=== PATIENT | female | born 1945 | race Caucasian/White ===

== ENCOUNTER → 2023-09-25 07:48 | Outpatient (REF) | payer MEDICARE, OTHER, SELFPAY | LOC: DHVS 07:48 | PROVIDERS: ATTENDING PHYSICIAN Surgery Vascular Surgery; FAMILY PHYSICIAN Family Medicine | DX: I73.9 Peripheral vascular disease, unspecified (principal); I65.23 Occlusion and stenosis of bilateral carotid arteries | CPT/HCPCS: 93880; 93922; 93925 ==

== ENCOUNTER → 2023-12-19 18:38 | Outpatient (REF) | payer MEDICARE, OTHER, SELFPAY | LOC: PAVMRI 18:38 | PROVIDERS: ATTENDING PHYSICIAN Family Medicine | DX: R41.82 Altered mental status, unspecified (principal) | CPT/HCPCS: 70551 ==

== ENCOUNTER → 2024-02-03 12:08 | Outpatient (REF) | payer MEDICARE, OTHER, SELFPAY | LOC: RAD 12:08 | PROVIDERS: ATTENDING PHYSICIAN Physician Assistant Medical; FAMILY PHYSICIAN Family Medicine | DX: M25.551 Pain in right hip (principal); M25.561 Pain in right knee | CPT/HCPCS: 73502; 73564 ==

== ENCOUNTER → 2024-02-11 11:48 | Outpatient (REF) | payer MEDICARE, OTHER, SELFPAY | LOC: RAD 11:48 | PROVIDERS: ATTENDING PHYSICIAN Family Medicine | DX: M54.31 Sciatica, right side (principal) | CPT/HCPCS: 72110 ==

== ENCOUNTER 2024-03-16 08:54 | Outpatient (RCR) | payer MEDICARE, OTHER, SELFPAY | END 2024-03-16 23:59 | disposition home or self-care (01) | LOC: RPT 08:54 | PROVIDERS: ATTENDING PHYSICIAN Family Medicine | DX: M54.16 Radiculopathy, lumbar region (principal); Z73.6 Limitation of activities due to disability; M79.604 Pain in right leg | CPT/HCPCS: 97010; 97110; 97140; 97162 ==

== ENCOUNTER 2024-04-02 07:09 | Outpatient (RCR) | payer MEDICARE, OTHER, SELFPAY | END 2024-04-02 23:59 | disposition home or self-care (01) | LOC: RPT 07:09 | PROVIDERS: ATTENDING PHYSICIAN Family Medicine | DX: M54.16 Radiculopathy, lumbar region (principal); Z73.6 Limitation of activities due to disability; M79.604 Pain in right leg | CPT/HCPCS: 97010; 97110; 97112 ==

== ENCOUNTER → 2024-04-15 07:43 | Outpatient (REF) | payer MEDICARE, OTHER, SELFPAY | LOC: DHVS 07:43 | PROVIDERS: ATTENDING PHYSICIAN Surgery Vascular Surgery | DX: I73.9 Peripheral vascular disease, unspecified (principal); I65.23 Occlusion and stenosis of bilateral carotid arteries | CPT/HCPCS: 93880; 93922; 93925 ==

== ENCOUNTER 2024-04-17 23:26 | Inpatient (IN) | payer MEDICARE, OTHER, SELFPAY ==
[2024-04-17 17:10] VITALS: BP 94/49
[2024-04-17 17:43] LABS: % Basophils 0.6 % (0-2); % Eosinophils 4.1 % (0-6); % Immature Granulocytes 0.6 % (0-0.5); % Lymphocytes 19.2 % (20.5-51.1); % Monocytes 12.3 % (1.7-9.3); % Neutrophils 63.2 % (42.2-75.2); Absolute Eosinophils 0.2 10^3/uL (0-0.7); Absolute Lymphocytes 0.9 10^3/uL (1.2-3.4); Absolute Monocytes 0.6 10^3/uL (0.1-0.6); Absolute Neutrophils 2.9 10^3/uL (1.4-6.5); Hemoglobin 7.3 g/dL (12.0-16.0); Mean Corp Hgb Conc. 30.4 g/dL (33.0-37.0); Mean Corpuscular Hgb 25.2 pg (27.0-31.0); Mean Corpuscular Volume 82.8 fL (81.0-99.0); Mean Platelet Volume 10.6 fL (7.4-10.4); Nucleated Red Blood Cells % 0 %; Platelet Count 254 10^3/uL (130-400); Red Cell Dist. Width 14.2 % (11.5-14.5); White Blood Cell Count 4.6 10^3/uL (4.8-10.8)
[2024-04-17 17:51] LABS: Urine Albumin 1+ (Neg - Trace); Urine Bilirubin Negative (Negative); Urine Character Clear (Clear); Urine Color Yellow; Urine Glucose Negative (Negative); Urine Ketone Negative (Negative); Urine Leukocyte 1+ (Negative); Urine Nitrite Negative (Negative); Urine Occult Blood Negative (Negative); Urine Urobilinogen 1+ (Neg - 1+)
[2024-04-17 18:06] LABS: ALT (SGPT) 17 U/L (0-35); AST (SGOT) 18 U/L (14-36); Albumin 4.4 g/dl (3.5-5.0); Alkaline Phosphatase 72 U/L (38-126); Blood Urea Nitrogen 38 mg/dl (7-17); Calcium 9.5 mg/dl (8.4-10.2); Carbon Dioxide 21 mmol/L (22-30); Chloride 104 mmol/L (98-107); Glucose 290 mg/dl (70-99); Potassium 4.2 mmol/L (3.5-5.1); Sodium 136 mmol/L (135-145); Total Bilirubin 0.6 mg/dl (0.2-1.3); Total Protein 6.6 g/dl (6.3-8.2); eGFR 35.45
[2024-04-17 18:13] LABS: Urine Red Blood Cell 0-2 /HPF (0-2); Urine Squamous Cell >30 /LPF (Few)
[2024-04-17 18:14] LABS: Urine Bacteria Few (Negative); Urine White Cell 21-25 /HPF (0-5)
[2024-04-17 20:50] VITALS: BP 135/53
[2024-04-17 21:00] VITALS: BP 145/45
[2024-04-17] MEDS: NSS 1000 IV (21:23)
[2024-04-17 21:39] LABS: COVID-19 Antigen Negative (Negative)
--- NOTE | 2024-04-17 21:50 | ED.GENMED ---
History of Present Illness
General
Chief Complaint: Weakness
Source: patient, spouse and family
Time Seen by Provider: 04/17/24 20:50
History of Present Illness
History of Present Illness:
78-year-old female with past medical history of peripheral vascular disease, CAD, hypertension, hyperlipidemia, previous PA, insulin-dependent diabetes presenting to the ER for evaluation of acute onset of confusion that began earlier today but over
the week has had mild URI-like symptoms, cough, generalized malaise. Daughter states they went out to lunch on Friday and everything seemed fine but later that evening patient had noted a slight sore throat and thought she was getting a mild cold.
The next few days patient had been sleeping greater than 12 hours/day but still feeling quite tired. No fevers during this time. Today family noted patient did not know she was in her own house and thought she was at somebody else's house but was
otherwise answering all other questions appropriately. At time of my exam patient states she has no concerns and family states patient is acting her usual baseline.
Past History
Past History
ED Past Medical History: CAD, CVA, HTN, Hypercholesterolemia, NIDDM and PA
ED Past Surgical History: Other (Femoropopliteal bypass)
Social History
Tobacco: Former smoker
Alcohol: None
Drug: None
Personal:
Living: with family
Family History
Family History: Other (reviewed and non-contributory)
Review of Systems
Review of Systems
All Other Systems: ROS reviewed and negative except as documented in HPI and ROS
Phy Exam
Physical Exam
Physical Exam:
GENERAL: Alert , in no apparent distress
EYE: clear conjunctiva b/l
HEAD: NCAT
ENT: mmm.
CARDIAC: Regular rate and rhythm .
LUNGS: Clear breath sounds bilaterally, no acute respiratory distress, no wheezes/rales/rhonchi
ABDOMEN: Soft, without focal tenderness, no r/g, no cvat, negative Graham sign, no tenderness at McBurney's point
RECTAL EXAM: Chaperoned by ED MARGARITA Boss, light brown stool, heme-negative
NEUROLOGICAL: Alert and oriented
SKIN: Warm and dry, skin intact.
MUSCULOSKELETAL: No edema, well perfused.
PSYCH: Normal and appropriate interaction.
Scores
Heart Failure Risk
Heart Failure Risk Score: Not Applicable
Heart Score for Chest Pain Patients
STEMI patient?: Not applicable
Withdrawal Assessment of Alcohol
Withdrawal Assessment Completed?: Not applicable
Course
Orders/Labs/Results
Orders:
Orders
04/17/24 17:23
CMP [Comprehensive Metabolic Panel] Urgent
Complete Blood Count/With Diff Urgent
04/17/24 17:28
Urinalysis Reflex To Culture Urgent
Date Specimen was Collected: 04/17/24
Time Specimen was Collected: 17:18
Urine Microscopic Reflex Cult Urgent
Urine Culture Urgent
ALIX Source: U
Specimen Description:
Date Specimen was Collected: 04/17/24
Time Specimen was Collected: 17:18
04/17/24 20:55
Type And Crossmatch [Type+Screen] Urgent
04/17/24 21:05
COVID-19 Antigen Urgent
Source: Nasal Swab
Influenza A+B Rapid Molecular Urgent
ALIX Source: Nasal Swab
Specimen Description:
04/17/24 21:18
0.9% Sodium Chloride 1000 ml [Nss] 1,000 ml IV BOLUS
Abnormal Lab Results
04/17/24 04/17/24
17:23 17:28
WBC 4.6 L 10^3/uL
(4.8-10.8)
RBC 2.90 L 10^6/uL
(4.20-5.40)
Hgb 7.3 L g/dL
(12.0-16.0)
Hct 24.0 L %
(37.0-47.0)
MCH 25.2 L pg
(27.0-31.0)
MCHC 30.4 L g/dL
(33.0-37.0)
MPV 10.6 H fL
(7.4-10.4)
Absolute Lymphs (auto) 0.9 L 10^3/uL
(1.2-3.4)
Immature Gran % 0.6 H %
(0-0.5)
Lymphocytes % 19.2 L %
(20.5-51.1)
Monocytes % 12.3 H %
(1.7-9.3)
Carbon Dioxide 21 L mmol/L
(22-30)
BUN 38 H mg/dl
(7-17)
Creatinine 1.5 H mg/dL
(0.6-1.0)
Glucose 290 H mg/dl
(70-99)
Leukocyte Esterase Rfl 1+ A
(Negative)
Urine WBC (Reflex) 21-25 A /HPF
(0-5)
Urine Bacteria (Reflex) Few A
(Negative)
Urine Albumin (Reflex) 1+ A
(Neg - Trace)
04/17/24 17:23
04/17/24 17:23
Vital Signs
Initial and Last Documented VS:
Initial Vital Signs
Pulse Resp BP Pulse Ox
52 16 94/49 99
04/17/24 17:10 04/17/24 17:10 04/17/24 17:10 04/17/24 17:10
Last Documented Vital Signs
Pulse Resp BP Pulse Ox
57 17 94/49 96
04/17/24 20:35 04/17/24 20:35 04/17/24 17:10 04/17/24 20:35
MDM/Problems Addressed
Differential Diagnosis Includes:
COVID, flu, pneumonia, urine infection, anemia, dehydration
*Critical Care Note
Total Time (30-74mins, 75-104mins- exclusive of procedures): Not Applicable
Patient Management
Discussion with other providers: Hospitalist
Escalation/DeEscalation of care consider admission/obs:
Hospitalist team accepts patient for continued evaluation and treatment for patient's anemia, acute kidney injury and possible urinary tract infection. Rocephin ordered to cover for UTI. Patient blood consent signed however will defer decision to
transfuse to hospitalist team.
ED Attending Note
-
Portions of this chart may have been created with voice recognition software.� Occasional wrong word or��sound alike� substitutions may have occurred due to the inherent limitations of voice recognition software.
Discharge Plan
Departure
Patient Disposition: Admit
Date of Disposition: 04/17/24
Time of Disposition: 22:01
Presentation/result/management discussed w/ accepting MD/DO: Hospitalist
Discharge Problem:
Anemia, DINORA (acute kidney injury), Acute UTI
Prescriptions:
No Action
atorvastatin 40 MG tablet
40 mg PO HS
ascorbic acid (vitamin C) [Vitamin C] 500 MG tablet
500 mg PO DAILY
vitamin E (dl, acetate) 400 UNITS capsule
400 units PO DAILY
glipizide 5 MG tablet extended release 24hr
10 mg PO BID@0800,1700
insulin glargine [Lantus U-100 Insulin] 100 UNIT/ML solution
10 unit SQ HS
aspirin [Saulo Chewable Aspirin] 81 MG tablet,chewable
81 mg PO DAILY
cyanocobalamin (vitamin B-12) 1,000 mcg Tablet
1,000 mcg PO DAILY
clopidogrel 75 mg Tablet
75 mg PO DAILY Qty: 3 0RF
metformin 500 MG tablet extended release 24 hr
1,000 mg PO BID@0800,1700 Qty: 0 0RF
Rx Instructions:
Restart 05/31/22
carvedilol 12.5 mg Tablet
12.5 mg PO BID Qty: 60 0RF
pantoprazole 40 mg Tablet,Delayed Release (Dr/Ec)
40 mg PO DAILY Qty: 30 0RF
hydrochlorothiazide 25 mg Tablet
25 mg PO DAILY Qty: 30 0RF
lisinopril 40 mg tablet
40 mg PO DAILY Qty: 30 0RF
Rx Instructions:
in pm
B-complex with vitamin C Tablet
1 tab PO DAILY
Referrals:
Jesus Fuentes MD [Family Provider] -
Interventions
Interventions:
*Risk Screen - Suicide Last Done: 04/17/24 17:10
*General Assessment Last Done: 04/17/24 20:51
*Neglect/Abuse Screening Last Done: 04/17/24 17:10
*ED COVID-19 Vaccine History Last Done: 04/17/24 20:51
ED- Cardiac Assessment Last Done: 04/17/24 20:55
ED- Neurological Assessment Last Done: 04/17/24 20:55
ED- Pulmonary Assessment Last Done: 04/17/24 20:55
Discharge Date and Time
Print Language: NICARAGUAN
[2024-04-17 22:00] VITALS: BP 156/43
--- NOTE | 2024-04-17 22:43 | HPS.HSE ---
Family Physician
-
Family Physician: Jesus Fuentes
Chief Complaint
-
Fatigue and weakness
History of Present Illness
This is a 78-year-old female with past medical history significant for CAD status post stenting, type 2 diabetes, hypertension, history of left subclavian stenosis, AR, cardiomyopathy without overt CHF, iron deficiency anemia carotid stenosis status
post left carotid endarterectomy who presents to the emergency department with 1 week of progressive fatigue and episodes of intermittent confusion.
Patient was brought in by daughter who first noticed that she seemed out of breath on Friday. This usually occurs after walking some distance. Patient herself denies any shortness of breath. She just feels fatigued with ambulation. She denies
orthopnea PND or lower extremity swelling. She denies any chest pain or palpitations. Patient denies having any cough cold or flulike symptoms. She denies any known sick contacts. She denies any fevers or chills. She denies any diarrhea,
vomiting, melena or hematochezia. She has episodes of being unable to remember certain items such as whether Was with her telephone was asked. She was otherwise neurologically intact.
Patient reported that she had episodes of urinary discomfort about 2 weeks ago when she was diagnosed with sciatica. Currently she denies dysuria, hematuria, frequency or incontinence. She denies pelvic pain or flank pain.
She is reported that she had an supplementation in the past and last iron levels a year ago were in the normal range so iron supplementation was discontinued. She denies feeling lightheaded or dizzy.
In the emergency department today blood pressure was 94/50 with a pulse of 57. She was satting 98% on room air. CBC was notable for a hemoglobin of 7.3 which is down from 9.4 a few months ago. Creatinine is elevated to 1.5, last creatinine was
1.0 over a year ago. Electrolytes were otherwise normal. UA was positive but that some squames. Influenza is negative. COVID test is negative.
Medical History
Past Medical History
Past Medical History: Reports CAD, HTN, Hypercholesterolemia, NIDDM and Valvular Disease (AR)
Additional Past Medical History:
Peripheral vascular disease
Iron deficiency anemia
h/o LGIB
Past Surgical History: Reports Other
Additional Past Surgical History:
Aorta to right external iliac and left common femoral artery bypass for aortoiliac occlusive disease 02/18/1997
Left femoral to above-knee popliteal artery bypass with PTFE for claudication 12/18/2007
Surgical thrombectomy of left femoral-popliteal bypass 05/02/2009
Left carotid endarterectomy with patch angioplasty 01/22/2010
Thrombolysis and angioplasty left femoral-popliteal bypass February 2016
S/P AAA (abdominal aortic aneurysm) repair
Social History
Tobacco: Non-smoker
Alcohol: None
Drug: None
Personal:
Living: With Family
Employment: Retired
Family History
Family History: Not pertinent
Allergies / Home Medications
Allergies reflects when Allergies were last updated in [facility].
Home Medications with original date entered in [facility]
Allergy/Medication List:
RA Vitamin B-12 TR 1,000 mcg 1 PO daily for 0 Apr, Active
Atorvastatin Calcium 40 MG 1 tablet Orally Once a day for 90 days Active
Vitamin E 400 UNIT Take one tablet by mouth daily Oral Nov, Active
Pantoprazole Sodium 40 MG TAKE 1 TABLET BY MOUTH EVERY DAY for 90 Unknown
glipiZIDE ER 5 MG 2 tablet with breakfast Twice a Day for 90 days Active
metFORMIN HCl ER 500 MG TAKE 2 TABLETS BY MOUTH Orally Twice a Day for 90 days Active
hydroCHLOROthiazide 25 MG 1 tablet in the morning Orally Once a day for 90 days Aug, Sep, Active
Accu-Chek Comfort Curve InVt Once a day for 0 days fasting qam Sep, Active
Lantus SoloStar 100 UNIT/ML 9 UNITS UNDER THE SKIN EVERY DAY OR DIRECTED for 100 days Active
Vitamin C 500 MG Take one tablet by mouth daily Oral Nov, Active
FreeStyle Lancets - as directed Once a Day for 90 days Active
Nitroglycerin 0.4 MG 1 Sublingual q 5 min x 3 prn CP prn Feb, Not-Taking/PRN
Vitamin B Complex-C - as directed Orally Active
Lisinopril 40 MG 1 tablet Orally Once a day for 90 days Aug, Active
FreeStyle Lite - as directed for testing BS for 90 days Dx: E11.65, E11.59 Dec, Active
Famotidine 40 MG 1 tablet at bedtime Orally Once a day for 90 days Active
Aspirin 81 MG 1 tablet Orally Once a day for 0 Mar, Active
amLODIPine Besylate 10 MG 1 tablet Orally Once a day for 90 days Aug, Active
FreeStyle Lite Test - Test BS, DX E11.65 In Vitro Twice a day for 90 days Dx E11.65 Active
Carvedilol 12.5 MG 1 tablet Orally Twice a day for 90 days Active
Review of Systems
-
History Source: Patient and Family
Constitutional: Reports Fatigue
EENT: Reports No Symptoms
Respiratory: Reports No Symptoms
Cardiac: Reports No Symptoms
Abdomen/GI: Reports No Symptoms
: Reports No Symptoms
Musculoskeletal: Reports No Symptoms
Skin: Reports No Symptoms
Neurological: Reports Other (forgetfullness)
Endocrine: Reports No Symptoms
Hematologic/Lymphatic: Reports No Symptoms
Psych: Reports No Symptoms
Physical Exam
Vital Signs
Vital Signs
Pulse Resp BP Pulse Ox
59 15 156/43 93
04/17/24 22:15 04/17/24 22:00 04/17/24 22:00 04/17/24 22:15
Physical Exam
General: Well Developed, No Apparent Distress, Comfortable and Conversant
HEENT: NormoCephalic, Anicteric, Moist mucous membranes and Atraumatic
Respiratory: Clear
Cardiac: S1/S2 and Bradycardia
Breast: Deferred by me
GI: Soft, Non Tender, Non Distended and Normal Bowel Sounds
Rectal: Brown and Hem Negative
Genito-urinary: Deferred by me
Musculoskeletal: No Clubbing, No Cyanosis and No Edema
Skin: Warm
Neuro: AO x 3 and Nonfocal/grossly intact
Hematologic/Lymphatic: No Lymphadenopathy
Psych: Calm
Laboratory Results
-
04/17/24 17:23
04/17/24 17:23
Laboratory Results
Total Bilirubin 0.6 mg/dl (0.2-1.3) 04/17/24 17:23
AST 18 U/L (14-36) 04/17/24 17:23
ALT 17 U/L (0-35) 04/17/24 17:23
Alkaline Phosphatase 72 U/L (38-126) 04/17/24 17:23
Data Reviewed
-
Lab Data: Labs Reviewed by me
Impression/Plan
-
IMPRESSION:
78 y.o with complex medical histories notable for SHIVANI, HTN PAD, HLD, IDDM presenting with fatigue and mild episode of confusion as well as prior episode of urinary symptoms about 2 weeks ago. +U/A, anemic down to 7.3, mild DINORA with BUN/Cr > 20
suggestive of prerenal azotemia. Negative Covid/Flu and no respiratory symptoms. No leukocytosis.
PLAN:
1. Fatigue/Weakness - Suspect mostly due to anemia versus hypothyroid.
- admit to med/surg
- transfuse 1 unit prbcs as IV fluids likely will lead to Hgb < 7
- suspect ongoing iron deficiency without acute bleeding, heme negative brown stool and no h/o melena or hematochezia
- check iron levels
- check tsh
- IV fluids 1 L in ED and re-evaluate
2. UTI - mild symptoms 2 weeks ago, + u/a here with squamos so equivocal
- urine cultures
- starte ceftriaxone
3. DINORA - baseline Cr 1.0, now 1.5. BUN/Cr > 20. Non-oliguric.
- IV fluids as above
- transfusion
4. DM II
- lantus 10 hs
- sliding scale insulin
- hold metformin
5. PAD
- continue amlodipin, coreg and lisinopril
- continue statin
- hold hctz
DVT PPX - heparin sq
Code status - full code
[2024-04-17] MEDS: ROCEPHIN 1000 MG IV (23:32)
[2024-04-18] VITALS (13 sets, daily range): BP systolic 98–161; BP diastolic 43–64; PULSE 55; O2SAT 94; BMI 22.0; BMI 21.5
--- NOTE | 2024-04-18 02:16 | PTCARENOTE ---
Pt walked from stretcher to bed w/ x1 assist. no c/o dizziness or pain. Pt aaox3, forgetful to details, and VSS. Blood consent sent from ED and this RN sent for blood. LFA IV patent. Plan of care ongoing.
--- NOTE | 2024-04-18 03:25 | PTCARENOTE ---
Addendum entered by Becca De La Fuente RN 04/18/24 05:19:
CXR showing severe acute interstitial cardiogenic pulmonary edema. Pt asymptomatic, 94% on 2L, BP 148/52, HR 62, RR 18 BP INVENTORY WORKER notified, tele, duoneb, Lasix 40mg IV (see MAR), and pro-bnp ordered. PRBCS currently infusing into LAC. Pro-bnp and bmp
drawn, cbc to be drawn after PRBC infusion. pt placed on purewick, pt urinated 400mls. Pt Sinus dot to sinus rhythm on tele #2. Plan of care ongoing.
Original Note:
PRBC infusion began at 0237 running at 80mls/hr, VSS and pt 97% RA and lungs clear on auscultation.
At 0245, pt conversing w/ RN and 88% on RA w/ no complaints, lungs slightly coarse at bases. Pt placed on 2L sating 96%, BP 160/64, HR 71, Temp 97.8, RR 18.
Infusion held at 0246. INVENTORY WORKER notified and instructed RN to continue infusion, restarted blood at 0253. Pt 89% on 2L while sleeping, placed on 3L sating at 92%.
INVENTORY WORKER up to floor to see pt. Pt 96-100% on 3L while awake. PRBCs running at 60mls/hr. INVENTORY WORKER ordered stat CXR, cxr taken and INVENTORY WORKER notified. Pt w/ no signs of distress, plan of care ongoing.
[2024-04-18] MEDS: DUONEB 3 ML INH (04:30)
[2024-04-18] MEDS: LASIX 40 MG IV (04:41)
--- NOTE | 2024-04-18 04:44 | W.PN.UPDATE ---
Update Note
Progress Note Update
RN reported patient noted to drop oxygen level to 88% RA while receiving blood. Prior to blood transfusion 98% RA. BP 160/64 HR 71 temp 97.8, RR 18. RN placed 2l oxygen and oxygen level increased to 94-96%. Patient seen and evaluated. Patient
denies shortness of breath, chest pain or chest tightness. No hx of sleep apnea.
Advised RN to run the blood slow at present. stat Chest Xray ordered. Covid/flu negative
BMP proBNP, Duo neb ordered
Chest Xray result noted. Will order Lasix 40mg IV x1. Transfer Telemetry, Echo in AM.
Dr. Yusra lindsey.
[2024-04-18 04:59] LABS: Blood Urea Nitrogen 28 mg/dl (7-17); Calcium 9.8 mg/dl (8.4-10.2); Carbon Dioxide 21 mmol/L (22-30); Chloride 107 mmol/L (98-107); Estimated Creatinine Clearance 39 ml/min; Glucose 227 mg/dl (70-99); Iron 38 ug/dl (37-170); Magnesium 1.4 mg/dl (1.6-2.3); Sodium 140 mmol/L (135-145); eGFR 51.43
[2024-04-18 05:02] LABS: NT-proBNP 2810 pg/ml
[2024-04-18 05:08] LABS: Percent Saturation 10 % (20-50); Total Iron Binding Capacity 377 ug/dl (265-497)
[2024-04-18 05:22] LABS: TSH 1.87 uIU/ml (0.47-4.68)
[2024-04-18 05:26] LABS: Ferritin 17.1 ng/ml (11.1-264.0)
[2024-04-18 05:42] LABS: Vitamin B12 > 1000 pg/ml (239-931)
[2024-04-18 08:10] LABS: Glucose - Point of Care 267 mg/dl (70-99)
[2024-04-18] MEDS: GLUCOTROL XL (EXTENDED RELEASE) 10 MG PO ×2 (08:48→17:10)
[2024-04-18] MEDS: HEPARIN 5000 UNITS SC ×2 (08:48→20:12)
[2024-04-18] MEDS: LOW STRENGTH ASPIRIN 81 MG PO (08:48)
[2024-04-18] MEDS: PROTONIX 40 MG PO (08:48)
[2024-04-18] MEDS: NOVOLOG FLEXPEN-LOW RESISTANCE 3 UNITS SC ×2 (08:49→12:07)
[2024-04-18] MEDS: COREG 12.5 MG PO ×2 (08:55→20:11)
[2024-04-18 11:55] LABS: Glucose - Point of Care 295 mg/dl (70-99)
[2024-04-18 13:36] LABS: Hematocrit 26.2 % (37.0-47.0); Hemoglobin 8.1 g/dL (12.0-16.0); Mean Corp Hgb Conc. 30.9 g/dL (33.0-37.0); Mean Corpuscular Hgb 25.7 pg (27.0-31.0); Mean Corpuscular Volume 83.2 fL (81.0-99.0); Mean Platelet Volume 10.7 fL (7.4-10.4); Platelet Count 240 10^3/uL (130-400); Red Blood Cell Count 3.15 10^6/uL (4.20-5.40); Red Cell Dist. Width 14.4 % (11.5-14.5); White Blood Cell Count 5.1 10^3/uL (4.8-10.8)
[2024-04-18 17:07] LABS: Glucose - Point of Care 222 mg/dl (70-99)
[2024-04-18] MEDS: NOVOLOG FLEXPEN-LOW RESISTANCE 2 UNITS SC (17:10)
[2024-04-18] MEDS: ZESTRIL 40 MG PO (17:10)
--- NOTE | 2024-04-18 17:53 | W.PN.HOSP.TC ---
Today's Communication/Plan
-
await Ur cx
will order Fe infusion
Assessment / Plan
Assessment / Plan
This is a 78-year-old female with past medical history significant for CAD status post stenting, type 2 diabetes, hypertension, history of left subclavian stenosis, AR, cardiomyopathy without overt CHF, iron deficiency anemia carotid stenosis status
post left carotid endarterectomy who presents to the emergency department with 1 week of progressive fatigue and episodes of intermittent confusion.
Patient was brought in by daughter who first noticed that she seemed out of breath on Friday. This usually occurs after walking some distance. Patient herself denies any shortness of breath. She just feels fatigued with ambulation. She denies
orthopnea PND or lower extremity swelling. She denies any chest pain or palpitations. Patient denies having any cough cold or flulike symptoms. She denies any known sick contacts. She denies any fevers or chills. She denies any diarrhea,
vomiting, melena or hematochezia. She has episodes of being unable to remember certain items such as whether Was with her telephone was asked. She was otherwise neurologically intact.
Patient reported that she had episodes of urinary discomfort about 2 weeks ago when she was diagnosed with sciatica. Currently she denies dysuria, hematuria, frequency or incontinence. She denies pelvic pain or flank pain.
She is reported that she had an supplementation in the past and last iron levels a year ago were in the normal range so iron supplementation was discontinued. She denies feeling lightheaded or dizzy.
In the emergency department today blood pressure was 94/50 with a pulse of 57. She was satting 98% on room air. CBC was notable for a hemoglobin of 7.3 which is down from 9.4 a few months ago. Creatinine is elevated to 1.5, last creatinine was
1.0 over a year ago. Electrolytes were otherwise normal. UA was positive but that some squames. Influenza is negative. COVID test is negative.
1. Fatigue/Weakness - Suspect mostly due to anemia versus hypothyroid.
- admit to med/surg
- transfused 1 unit prbcs as IV fluids likely will lead to Hgb < 7
Hgb 7.3-->8.1
- suspect ongoing iron deficiency without acute bleeding, heme negative brown stool and no h/o melena or hematochezia
- Fe sat 10% with Ferritin 17.1
- tsh 1.87
2. UTI - mild symptoms 2 weeks ago, + u/a here with squamos so equivocal
- urine cultures pending
- started ceftriaxone
3. DINORA - baseline Cr 1.0, now 1.5. BUN/Cr > 20. Non-oliguric.
- IV fluids as above
- transfusion
BUN/Creat 38/1.5-->28/1.1
4. DM II
- lantus 10 hs
- sliding scale insulin
- hold metformin
5. PAD
- continue amlodipine, coreg and lisinopril
- continue statin
- hold hctz
6. Anemia
most likely due to angioectasia. Has gotten argon plasma coagulation at [facility] in past
DVT PPX - heparin sq
Code status - full code
2nd visit to review with in room
Anticipated Discharge: 24 - 48 hours
Subjective/Interval History
-
Date of Service: April 18, 2024
Generally feels better
Objective Data
-
Labs:
Laboratory Results
04/18/24
13:15
WBC 5.1
Hgb 8.1 L
Hct 26.2 L
Plt Count 240
Vital Signs:
Vital Signs
Temp Pulse Resp BP Pulse Ox
98.6 F 63 18 143/90 95
04/18/24 15:55 04/18/24 15:55 04/18/24 15:55 04/18/24 17:10 04/18/24 15:55
I&O
04/17/24 04/18/2425
06:59 06:59 06:59
Intake Total 490 / 490
Output Total 880 / 880
Balance -390 / -390
Review of Systems
-
History Source: Patient and Coordinated Provider
Constitutional: Reports Weakness (better)
EENT: Reports No Symptoms Reported
Respiratory: Reports No Symptoms
Cardiac: Reports No Symptoms
Abdomen/GI: Reports No Symptoms
Neuro: Reports Weakness
Physical Exam
-
General: Well Developed, Well Nourished and No Apparent Distress
HEENT: Normocephalic, Atraumatic and Moist Mucous Membranes
Respiratory: Clear to Auscultation; Negative Wheezes, Rales or Rhonchi
Cardiac: Regular Rhythm and S1/S2
GI: Soft, Nontender and Nondistended
Musculoskeletal: No Clubbing, No Cyanosis and No Edema
Skin: Warm and Dry
Neuro: Alert and Oriented
[2024-04-18] MEDS: FERRLECIT 110 MG IV (20:09)
[2024-04-18 21:28] LABS: Glucose - Point of Care 233 mg/dl (70-99)
[2024-04-18] MEDS: LIPITOR 40 MG PO (21:55)
[2024-04-18] MEDS: LANTUS 0.05 UNITS SC (21:55)
[2024-04-19] MEDS: ROCEPHIN 1000 MG IV (00:59)
[2024-04-19] MEDS: STERILE WATER FOR INJECTION 10 ML IV (00:59)
[2024-04-19 03:26] VITALS: BP 116/58
[2024-04-19 05:45] VITALS: BMI 21.4
[2024-04-19 06:29] LABS: Hematocrit 29.2 % (37.0-47.0); Mean Corp Hgb Conc. 30.8 g/dL (33.0-37.0); Mean Corpuscular Hgb 25.5 pg (27.0-31.0); Mean Corpuscular Volume 82.7 fL (81.0-99.0); Mean Platelet Volume 10.5 fL (7.4-10.4); Platelet Count 261 10^3/uL (130-400); Red Blood Cell Count 3.53 10^6/uL (4.20-5.40); Red Cell Dist. Width 14.4 % (11.5-14.5); White Blood Cell Count 7.4 10^3/uL (4.8-10.8)
[2024-04-19 06:50] LABS: Blood Urea Nitrogen 28 mg/dl (7-17); Carbon Dioxide 27 mmol/L (22-30); Chloride 101 mmol/L (98-107); Estimated Creatinine Clearance 36 ml/min; Glucose 144 mg/dl (70-99); Potassium 4.5 mmol/L (3.5-5.1); Sodium 137 mmol/L (135-145); eGFR 46.33
[2024-04-19 07:53] VITALS: BP 141/56
[2024-04-19 07:53] LABS: Glucose - Point of Care 220 mg/dl (70-99)
[2024-04-19] MEDS: GLUCOTROL XL (EXTENDED RELEASE) 10 MG PO (08:43)
[2024-04-19] MEDS: PROTONIX 40 MG PO (08:43)
[2024-04-19] MEDS: LOW STRENGTH ASPIRIN 81 MG PO (08:43)
[2024-04-19] MEDS: COREG 12.5 MG PO (08:43)
[2024-04-19] MEDS: HEPARIN 5000 UNITS SC (08:44)
[2024-04-19] MEDS: NOVOLOG FLEXPEN-LOW RESISTANCE 2 UNITS SC (08:44)
[2024-04-19 11:57] VITALS: BP 160/60
[2024-04-19 12:07] LABS: Glucose - Point of Care 261 mg/dl (70-99)
[2024-04-19] MEDS: NOVOLOG FLEXPEN-LOW RESISTANCE 3 UNITS SC (12:56)
[2024-04-19] MEDS: FERRLECIT 110 MG IV (14:07)
--- NOTE | 2024-04-19 14:30 | W.PN.HOSP.TC ---
Today's Communication/Plan
-
dc to home
Assessment / Plan
Assessment / Plan
This is a 78-year-old female with past medical history significant for CAD status post stenting, type 2 diabetes, hypertension, history of left subclavian stenosis, AR, cardiomyopathy without overt CHF, iron deficiency anemia carotid stenosis status
post left carotid endarterectomy who presents to the emergency department with 1 week of progressive fatigue and episodes of intermittent confusion.
Patient was brought in by daughter who first noticed that she seemed out of breath on Friday. This usually occurs after walking some distance. Patient herself denies any shortness of breath. She just feels fatigued with ambulation. She denies
orthopnea PND or lower extremity swelling. She denies any chest pain or palpitations. Patient denies having any cough cold or flulike symptoms. She denies any known sick contacts. She denies any fevers or chills. She denies any diarrhea,
vomiting, melena or hematochezia. She has episodes of being unable to remember certain items such as whether Was with her telephone was asked. She was otherwise neurologically intact.
Patient reported that she had episodes of urinary discomfort about 2 weeks ago when she was diagnosed with sciatica. Currently she denies dysuria, hematuria, frequency or incontinence. She denies pelvic pain or flank pain.
She is reported that she had an supplementation in the past and last iron levels a year ago were in the normal range so iron supplementation was discontinued. She denies feeling lightheaded or dizzy.
In the emergency department noted low blood pressure was 94/50 with a pulse of 57. She was satting 98% on room air. CBC was notable for a hemoglobin of 7.3 which is down from 9.4 a few months ago. Creatinine is elevated to 1.5, last creatinine
was 1.0 over a year ago. Electrolytes were otherwise normal. UA was positive but that some squames. Influenza is negative. COVID test is negative.
1. Fatigue/Weakness - Suspect mostly due to anemia, unclear whether also component of UTI, though culture was negative
- admit to med/surg
- transfused 1 unit prbcs as IV fluids likely will lead to Hgb < 7
Hgb 7.3-->8.1-->9.0
- suspect ongoing iron deficiency without acute bleeding, heme negative brown stool and no h/o melena or hematochezia
- Fe sat 10% with Ferritin 17.1
- tsh 1.87
2. UTI - mild symptoms 2 weeks ago, + u/a here with squamos so equivocal
- urine cultures neg
- started ceftriaxone, will not continue abx for now
3. DINORA - baseline Cr 1.0, now 1.5. BUN/Cr > 20. Non-oliguric.
- IV fluids as above
- transfusion
BUN/Creat 38/1.5-->28/1.1-->28/1.2
4. DM II
- lantus 10 hs
- sliding scale insulin
- hold metformin
resume preadmit Metformin at time of dc
5. PAD
- continue amlodipine, coreg and lisinopril
- continue statin
- hold hctz
6. Anemia
most likely due to angioectasia. Has gotten argon plasma coagulation at [facility] in past
DVT PPX - heparin sq
Code status - full code
dc now
see dictated note
More than 30 minutes spent in discharge including
Final examination of the patient
Summarizing hospital stay
Instructions for continuing care to all relevant caregivers
Preparation of discharge records, prescriptions, and referral forms
Total time spent (in minutes): 45
Anticipated Discharge: Today
Subjective/Interval History
-
Date of Service: April 19, 2024
Feels much better, as per dgt Patti, mentation is better, though not quite at baseline
Objective Data
-
Labs:
Laboratory Results
04/19/24
05:36
WBC 7.4
Hgb 9.0 L
Hct 29.2 L
Plt Count 261
Sodium 137
Potassium 4.5
Chloride 101
Carbon Dioxide 27
BUN 28 H
Creatinine 1.2 H
Glucose 144 H
Calcium 10.0
Vital Signs:
Vital Signs
Temp Pulse Resp BP Pulse Ox
97.4 F 60 18 160/60 97
04/19/24 11:57 04/19/24 11:57 04/19/24 11:57 04/19/24 11:57 04/19/24 11:57
I&O
04/18/24 04/19/24 04/20/24
06:59 06:59 06:59
Intake Total 490 / 490 830 / 830
Output Total 880 / 880
Balance -390 / -390 830 / 830
Review of Systems
-
History Source: Patient and Family ( and dgt in room)
Constitutional: Denies Fever
EENT: Reports No Symptoms Reported
Respiratory: Reports No Symptoms
Cardiac: Reports No Symptoms
Abdomen/GI: Reports No Symptoms
Neuro: Reports Weakness (improved)
Physical Exam
-
General: Well Developed, Well Nourished and No Apparent Distress
HEENT: Normocephalic, Atraumatic and Moist Mucous Membranes
Respiratory: Clear to Auscultation; Negative Wheezes, Rales or Rhonchi
Cardiac: Regular Rhythm and S1/S2
GI: Soft, Nontender and Nondistended
Musculoskeletal: No Clubbing, No Cyanosis and No Edema
Skin: Warm and Dry
Neuro: Alert and Oriented
--- NOTE | 2024-04-19 14:55 | W.DS.TRANS ---
DC Summary - [employer]
-
Discharge Instructions:
Discharge Diagnosis/Procedures anemia
Diet Regular
Activity As tolerated
Driving Restrictions No driving
Bathing Restrictions None
Blood Work cbc in 1 week
Other Services VN
Instructions:
Stand-Alone Forms:
Changes to Home Medications: Yes
Discharge Medications:
DC Medications w/original date entered in [employer]
atorvastatin 40 mg tablet 40 mg PO HS High cholesterol 03/31/11
ascorbic acid (vitamin C) 500 mg tablet (Vitamin C) 500 mg PO DAILY Supplement 03/17/16
vitamin E (dl, acetate) 180 mg (400 unit) capsule 400 units PO DAILY Supplement 03/17/16
glipizide 5 mg tablet, extended release 24 hr 10 mg PO BID@0800,1700 Diabetes 04/20/19
insulin glargine 100 unit/mL subcutaneous solution (Lantus U-100 Insulin) 10 unit SQ HS Diabetes 05/13/19
cyanocobalamin (vitamin B-12) 1,000 mcg tablet 1,000 mcg PO DAILY Supplement 05/27/22
carvedilol 12.5 mg tablet 12.5 mg PO BID #60 tabs 08/30/22
lisinopril 40 mg tablet 40 mg PO DAILY #30 tabs 08/30/22
pantoprazole 40 mg tablet,delayed release 40 mg PO DAILY #30 tabs 08/30/22
B-complex with vitamin C 1 tab PO DAILY Supplement 09/07/22
polyethylene glycol 3350 17 gram oral powder packet 17 g PO DAILYPRN PRN constipation #0 ea 04/19/24
Home Medication Changes
stop HCTZ, Metformin
Unclear if patient taking ASA and Plavix, but if was, needs to stop
Pending Results: No
--- NOTE | 2024-04-19 15:18 | CM ---
Alert awake oriented patient who lives with her Kiran they lives in a condo with 12 steps to enter. She is independent in driving and in all activities of daily living.Offered VN she declined.
No adaptive devices
Hx of [facility] hx/SNF
Pharmacy [facility]
PCP Dr Merritt
PLAN Home no needs
[2024-04-19 15:51] VITALS: BP 142/60
== END 2024-04-19 16:57 | disposition home or self-care (01) | DRG 811 ==
LOC: 3 WEST ACU 23:26
PROVIDERS: Emergency Medicine; Nurse Practitioner Gerontology; Physician Assistant Medical; ADMITTING PHYSICIAN Internal Medicine; ATTENDING PHYSICIAN Internal Medicine; EMERGENCY PHYSICIAN Student in an Organized Health Care Education/Training Program; FAMILY PHYSICIAN Surgery Vascular Surgery
PROC: 30233N1 Transfusion of Nonautologous Red Blood Cells into Peripheral Vein, Percutaneous Approach (ICD-10-PCS; 2024-04-18)
DX: D50.9 Iron deficiency anemia, unspecified (principal); G93.41 Metabolic encephalopathy; N39.0 Urinary tract infection, site not specified; I42.9 Cardiomyopathy, unspecified; N17.9 Acute kidney failure, unspecified; E11.51 Type 2 diabetes mellitus with diabetic peripheral angiopathy without gangrene; Z79.4 Long term (current) use of insulin; I70.0 Atherosclerosis of aorta; Z95.5 Presence of coronary angioplasty implant and graft; I10 Essential (primary) hypertension; M54.30 Sciatica, unspecified side; Z87.891 Personal history of nicotine dependence; Z79.899 Other long term (current) drug therapy; Z79.82 Long term (current) use of aspirin; I95.9 Hypotension, unspecified; Z11.52 Encounter for screening for COVID-19; E78.00 Pure hypercholesterolemia, unspecified; I25.10 Atherosclerotic heart disease of native coronary artery without angina pectoris
CPT/HCPCS: 71045; 80048; 80053; 81003; 81015; 82607; 82728; 82962; 83540; 83550; 83735; 83880; 84443; 85025; 85027; 86850; 86900; 86901; 86920; 87086; 87502; 87811; 93306; 93880; 93922; 93925; 94640; 96361; 96374; 97116; 97163; 99284; J2916; P9016

== ENCOUNTER → 2024-04-26 09:02 | Outpatient (REF) | payer MEDICARE, OTHER, SELFPAY ==
[2024-04-26 10:42] LABS: % Basophils 0.6 % (0-2); % Eosinophils 2.2 % (0-6); % Immature Granulocytes 0.6 % (0-0.5); % Lymphocytes 10.1 % (20.5-51.1); % Monocytes 7.7 % (1.7-9.3); % Neutrophils 78.8 % (42.2-75.2); Absolute Eosinophils 0.2 10^3/uL (0-0.7); Absolute Lymphocytes 0.7 10^3/uL (1.2-3.4); Absolute Monocytes 0.6 10^3/uL (0.1-0.6); Absolute Neutrophils 5.6 10^3/uL (1.4-6.5); Hematocrit 31.1 % (37.0-47.0); Hemoglobin 9.3 g/dL (12.0-16.0); Mean Corp Hgb Conc. 29.9 g/dL (33.0-37.0); Mean Corpuscular Hgb 25.2 pg (27.0-31.0); Mean Corpuscular Volume 84.3 fL (81.0-99.0); Mean Platelet Volume 10.9 fL (7.4-10.4); Nucleated Red Blood Cells % 0 %; Platelet Count 292 10^3/uL (130-400); Red Blood Cell Count 3.69 10^6/uL (4.20-5.40); Red Cell Dist. Width 15.3 % (11.5-14.5); White Blood Cell Count 7.1 10^3/uL (4.8-10.8)
[2024-04-26 11:16] LABS: Blood Urea Nitrogen 33 mg/dl (7-17); Calcium 9.9 mg/dl (8.4-10.2); Carbon Dioxide 24 mmol/L (22-30); Chloride 102 mmol/L (98-107); Glucose 382 mg/dl (70-99); Potassium 5.6 mmol/L (3.5-5.1); Sodium 136 mmol/L (135-145); eGFR 46.33
[2024-04-26 11:25] LABS: Total Iron Binding Capacity 339 ug/dl (265-497)
[2024-04-26 14:05] LABS: Iron 60 ug/dl (37-170); Percent Saturation 17 % (20-50)
== END ==
LOC: REG 09:02
PROVIDERS: ATTENDING PHYSICIAN Family Medicine
DX: N18.31 Chronic kidney disease, stage 3a (principal); D50.0 Iron deficiency anemia secondary to blood loss (chronic); I25.10 Atherosclerotic heart disease of native coronary artery without angina pectoris
CPT/HCPCS: 36415; 80048; 83540; 83550; 85025

== ENCOUNTER → 2024-05-03 09:39 | Outpatient (REF) | payer MEDICARE, OTHER, SELFPAY ==
[2024-05-03 11:07] LABS: % Basophils 0.6 % (0-2); % Eosinophils 2.3 % (0-6); % Immature Granulocytes 0.7 % (0-0.5); % Lymphocytes 13.6 % (20.5-51.1); % Monocytes 7.7 % (1.7-9.3); % Neutrophils 75.1 % (42.2-75.2); Absolute Eosinophils 0.2 10^3/uL (0-0.7); Absolute Immature Granulocytes 0.1 10^3/uL (0-0.05); Absolute Lymphocytes 0.9 10^3/uL (1.2-3.4); Absolute Monocytes 0.5 10^3/uL (0.1-0.6); Absolute Neutrophils 5.2 10^3/uL (1.4-6.5); Hematocrit 34.2 % (37.0-47.0); Hemoglobin 10.2 g/dL (12.0-16.0); Mean Corp Hgb Conc. 29.8 g/dL (33.0-37.0); Mean Corpuscular Hgb 25.7 pg (27.0-31.0); Mean Corpuscular Volume 86.1 fL (81.0-99.0); Mean Platelet Volume 11.3 fL (7.4-10.4); Nucleated Red Blood Cells % 0 %; Platelet Count 299 10^3/uL (130-400); Red Blood Cell Count 3.97 10^6/uL (4.20-5.40); Red Cell Dist. Width 15.9 % (11.5-14.5); White Blood Cell Count 6.9 10^3/uL (4.8-10.8)
[2024-05-03 11:39] LABS: Blood Urea Nitrogen 20 mg/dl (7-17); Calcium 9.9 mg/dl (8.4-10.2); Carbon Dioxide 21 mmol/L (22-30); Chloride 107 mmol/L (98-107); Glucose 223 mg/dl (70-99); Iron 44 ug/dl (37-170); Potassium 5.5 mmol/L (3.5-5.1); Sodium 138 mmol/L (135-145); eGFR 57.66
[2024-05-03 11:49] LABS: Percent Saturation 12 % (20-50); Total Iron Binding Capacity 358 ug/dl (265-497)
== END ==
LOC: REG 09:39
PROVIDERS: ATTENDING PHYSICIAN Family Medicine
DX: D50.0 Iron deficiency anemia secondary to blood loss (chronic) (principal); N18.31 Chronic kidney disease, stage 3a
CPT/HCPCS: 36415; 80048; 83540; 83550; 85025

== ENCOUNTER → 2024-05-10 08:15 | Outpatient (REF) | payer MEDICARE, OTHER, SELFPAY ==
[2024-05-10 09:20] LABS: % Basophils 0.3 % (0-2); % Eosinophils 2.6 % (0-6); % Immature Granulocytes 0.5 % (0-0.5); % Lymphocytes 15.3 % (20.5-51.1); % Monocytes 10.3 % (1.7-9.3); Absolute Eosinophils 0.2 10^3/uL (0-0.7); Absolute Lymphocytes 0.9 10^3/uL (1.2-3.4); Absolute Monocytes 0.6 10^3/uL (0.1-0.6); Absolute Neutrophils 4.1 10^3/uL (1.4-6.5); Hematocrit 30.1 % (37.0-47.0); Mean Corp Hgb Conc. 29.9 g/dL (33.0-37.0); Mean Corpuscular Hgb 25.5 pg (27.0-31.0); Mean Corpuscular Volume 85.3 fL (81.0-99.0); Nucleated Red Blood Cells % 0 %; Platelet Count 218 10^3/uL (130-400); Red Blood Cell Count 3.53 10^6/uL (4.20-5.40); White Blood Cell Count 5.8 10^3/uL (4.8-10.8)
== END ==
LOC: REG 08:15
PROVIDERS: ATTENDING PHYSICIAN Internal Medicine Gastroenterology; FAMILY PHYSICIAN Family Medicine
DX: D50.0 Iron deficiency anemia secondary to blood loss (chronic) (principal)
CPT/HCPCS: 36415; 85025

== ENCOUNTER → 2024-08-24 09:26 | Outpatient (REF) | payer MEDICARE, OTHER, SELFPAY | LOC: REG 09:26 | PROVIDERS: ATTENDING PHYSICIAN Family Medicine | DX: R06.09 Other forms of dyspnea (principal) | CPT/HCPCS: 71046 ==

== ENCOUNTER → 2024-10-20 12:50 | Outpatient (REF) | payer MEDICARE, OTHER, SELFPAY | LOC: RAD 12:50 | PROVIDERS: ATTENDING PHYSICIAN Surgery Vascular Surgery; FAMILY PHYSICIAN Family Medicine | DX: I73.9 Peripheral vascular disease, unspecified (principal); I65.23 Occlusion and stenosis of bilateral carotid arteries | CPT/HCPCS: 93880; 93922; 93925 ==